=== PATIENT | male | born 1955 | race Hispanic/Latino ===

== ENCOUNTER → 2018-08-14 | Outpatient (CLI) | payer BC ==
[~2018-08-14] MED LIST: IOPAMIDOL 370 MG/ML 200 ML INFUS..BTL INJ ONE; SODIUM CHLORIDE 0.9% 250ML 250 ML ONE; SODIUM CHLORIDE 0.9% 500ML 500 ML ONE
[2018-08-14 10:14] LABS: CREATININE, SERUM 1.28 mg/dL (0.72-1.25)
--- NOTE | 2018-08-14 12:58 | Diagnostic Imaging Report ---
EXAMINATION: CT of the abdomen and pelvis with and without contrast. TECHNIQUE: Spiral CT images of the abdomen and pelvis were performed from the lung bases to the lesser trochanters after the intravenous administration of 100 cc Isovue-370. Scanning was performed in precontrast and urographic phases in the prone position per CT urogram protocol. Coronal and sagittal reformatted images were obtained. Optimization of anatomic definition, volume rendered 3-D reconstructed images were obtained on a stand-alone workstation under direct supervision of the interpreting physician. COMPARISON: None. CLINICAL HISTORY:Gross hematuria DISCUSSION: ABDOMEN/PELVIS: LOWER THORAX:Unremarkable. HEPATOBILIARY: 1.8 cm simple cyst in segment 2, average internal attenuation 15-20 Hounsfield units on postcontrast CT. Similar hypoattenuating lesion measuring 3.3 cm in segment 6, also with average internal attenuation less than 20 Hounsfield units on postcontrast imaging. Additional subcentimeter hypoattenuating lesions scattered throughout the right and left hepatic lobes, too small to further characterize but likely represent additional small cysts. Gallbladder has been removed. SPLEEN: No splenomegaly. PANCREAS: No focal masses or ductal dilatation. ADRENALS: No adrenal nodules. KIDNEYS/URETERS: No renal, ureteral, or bladder calculi. 1.1 cm hyperdense lesion in the right kidney (average attenuation 88 Hounsfield units on precontrast images, and 80 Hounsfield units on urographic phase images), compatible with a hemorrhagic or proteinaceous cyst. Ovoid low-attenuation lesion within the anterior upper pole of the left kidney, average internal attenuation 20 Hounsfield units on precontrast images and 40-45 Hounsfield units on urographic images. 1 cm exophytic lesion projecting from the left kidney with average attenuation 21 Hounsfield units on precontrast image and 85 Hounsfield units on postcontrast imaging. Additional simple cyst projecting medially from the upper pole of the left kidney average internal attenuation 15 Hounsfield units on urographic phase images. Similar parenchymal lesion of the medial left kidney also with average internal attenuation less than 20 Hounsfield units on urographic images seen on series 7 image 86. Additional subcentimeter hypoattenuating lesions within both kidneys, too small to further characterize. Urographic phase images show no filling defects within the upper collecting systems, ureters, or urinary bladder. PELVIC ORGANS/BLADDER: Urinary bladder is unremarkable. The prostate is markedly enlarged and heterogeneous, measuring nearly 7 cm transversely with mass effect upon the bladder base. PERITONEUM/RETROPERITONEUM: No ascites or pneumoperitoneum. LYMPH NODES: No pelvic sidewall, retroperitoneal, or mesenteric lymphadenopathy. VESSELS: Atherosclerotic calcification of the abdominal aorta without aneurysmal dilatation. The right hepatic artery is replaced to the superior mesenteric artery. Portal vein, splenic vein, and central superior mesenteric vein are patent. GI TRACT: The large bowel shows no distention or wall thickening. Multiple descending and sigmoid colon diverticula without adjacent inflammatory change. The appendix is unremarkable. The stomach is collapsed with prominence of the rugal folds. No small bowel dilatation to suggest obstruction. BONES AND SOFT TISSUE: No osseous destructive lesions. Multilevel degenerative disc changes and facet arthropathy of the lumbar spine. Postsurgical changes related to mesh repair of ventral abdominal wall hernia. Otherwise no focal soft tissue abnormalities. IMPRESSION: No urolithiasis or filling defects within the upper collecting systems or ureters. Marked prostatomegaly with heterogeneous attenuation of the gland and mass effect upon the bladder base. Right renal hyperdense cyst with additional bilateral simple cysts. 1 cm exophytic lesion in the left kidney has enhancement characteristics suspicious for solid mass and should be further evaluated by MRI of the abdomen with and without contrast (renal mass protocol). Large bowel diverticulosis without findings of diverticulitis. Atherosclerotic vascular disease. Signed by: Dr. Alex Xiong M.D. on 08/14/2018 12:54 PM
== END ==
LOC: CT 09:21
PROVIDERS: ATTEND Urology
DX: R31.0 Gross hematuria (principal)
CPT/HCPCS: 36415; 74178; 82565; 84520; J7040; J7050; Q9967

== ENCOUNTER → 2018-09-11 | Outpatient (CLI) | payer BC ==
[~2018-09-11] MED LIST changes: +GADOBENATE DIMEGLUMINE 1 ML IV ONE; -IOPAMIDOL 370 MG/ML 200 ML INFUS..BTL INJ ONE; -SODIUM CHLORIDE 0.9% 250ML 250 ML ONE; -SODIUM CHLORIDE 0.9% 500ML 500 ML ONE
--- NOTE | 2018-09-14 08:13 | Diagnostic Imaging Report ---
MRI abdomen CPT code: 60505 Indication: 10 mm enhancing left renal mass on CT urogram ^NEOPLASM OF KIDNEY Technique: Axial T1 nonfat sat in and out of phase, axial T2 fat sat, coronal T2 nonfat sat, axial DWI and ADC MR images of the abdomen were obtained before and after the administration of 15 cc of gadolinium. Axial T1 fat sat GRE dynamic images in precontrast, arterial, venous and delayed phases were obtained. Comparison: CT urogram 08/14/2018 Findings: Virtually all pulse sequences are motion degraded, including the post gadolinium sequences. Liver: Multiple cysts, with the largest cyst measuring 3.9 cm in segment 6. A cyst in segment 2 measures 2 cm and is lobulated and potentially septated. No enhancing lesions given the presence of motion degradation. Gallbladder: Absent Biliary tree: No intrahepatic or extrahepatic biliary ductal dilatation. No intraluminal filling defects. Pancreas: No mass or ductal dilatation Spleen: Normal size and signal. No mass Adrenal glands: No mass Kidneys: Right kidney: Multiple high T2 and low T1 signal cysts. There is one lesion in the posterior interpolar cortex with low T2 and high T1 signal. This measures 0.9 x 1.5 cm. There is no conclusive evidence of enhancement. This corresponds to a proteinaceous/hemorrhagic cyst identified on CT urogram. No hydronephrosis. Left kidney: Multiple high T2, low T1 signal cysts, the largest cysts in the medial upper pole measuring 1.9 cm.. The lesion in question on CT urogram corresponds to a partially exophytic high T2 signal lesion in the lateral interpolar cortex that measures approximately 7 mm. On post gadolinium sequences, there is suggestion of enhancement but there is also the presence of motion degradation. Subtraction images are inconclusive for enhancement but these are also motion degraded. No hydronephrosis. Lymph nodes: No enlarged abdominal or periaortic lymph nodes Bowel: Diverticulosis coli. No associated inflammation. Stomach and visualized portions of the small bowel and large bowel are normal in diameter with normal wall thickness. The appendix is normal. Vasculature: The aorta is mildly tortuous. No aneurysmal dilatation. Normal flow voids in the great vessels of the abdomen. Visualized pelvic organs are unremarkable. Lung bases: Clear. Peritoneum/retroperitoneum: No free fluid or fluid collection. Bones: Normal marrow signal. No focal osseous lesions. IMPRESSION: 1. 7 mm partially exophytic lesion in the left kidney remains indeterminate. Consider repeat MRI with better breath hold (possibly using moderate sedation) or repeat CT urogram in 3-6 months to confirm stability. 2. A low T2 signal nonenhancing lesion in the right kidney has signal characteristics suggestive of a proteinaceous/hemorrhagic cyst. 3. Hepatic cysts. 4. Diverticulosis coli. Signed by: Dr. Hina Hogan MD on 09/14/2018 8:09 AM
== END ==
LOC: MRI 12:50
PROVIDERS: ATTEND Urology
DX: D41.00 Neoplasm of uncertain behavior of unspecified kidney (principal)
CPT/HCPCS: 74183; A9577

== ENCOUNTER 2018-11-30 13:00 | Observation (INO) | payer BC ==
[~2018-11-30] VITALS: Ht 170.2 cm; Wt 88.9 kg
--- OUTSIDE RECORDS SUMMARY | 2018-11-30 13:02 | XMS REPORT ---
[facility] Address Unknown Phone Unavailable Care Team Providers Care Refractory Mixer Name Role Phone MIKE ORTEGA Unavailable Unavailable Problems This patient has no known problems. Allergies, Adverse Reactions, Alerts This patient has no known allergies or adverse reactions. Medications This patient has no known medications. Results Test Description Test Time Test Comments Text Results Atomic Results Result Comments MRI ABDOMEN WOW 2018-09-14 07:54:00 [place] [address] Patient Name: MARY COOLEY MR #: [id number] : 1955 Age/Sex: 63/M Req #: [id number] Adm Physician: Ordered by: MIKE ORTEGA MD Report #: [id number] Location: MRI Room/Bed: Procedure: [id number] MRI/MRI ABDOMEN WOW Exam Date: Exam Time: REPORT STATUS: Signed MRI abdomen CPT code: 17655 Indication: 10 mm enhancing left renal mass on CT urogram NEOPLASM OF KIDNEY Technique: Axial T1 nonfat sat in and out of phase, axial T2 fat sat, coronal T2 nonfat sat, axial DWI and ADC MR images of the abdomen were obtained before and after the administration of 15 cc of gadolinium. Axial T1 fat sat GRE dynamic images in precontrast, arterial, venous and delayed phases were obtained. Comparison: CT urogram 08/14/2018 Findings: Virtually all pulse sequences are motion degraded, including the post gadolinium sequences. Liver: Multiple cysts, with the largest cyst measuring 3.9 cm in segment 6. A cyst in segment 2 measures 2 cm and is lobulated and potentially septated. No enhancing lesions given the presence of motion degradation. Gallbladder: Absent Biliary tree: No intrahepatic or extrahepatic biliary ductal dilatation. No intraluminal filling defects. Pancreas: No mass or ductal dilatation Spleen: Normal size and signal. No mass Adrenal glands: No mass Kidneys: Right kidney: Multiple high T2 and low T1 signal cysts. There is one lesion in the posterior interpolar cortex with low T2 and high T1 signal. This measures 0.9 x 1.5 cm. There is no conclusive evidence of enhancement. This corresponds to a proteinaceous/hemorrhagic cyst identified on CT urogram. No hydronephrosis. Left kidney: Multiple high T2, low T1 signal cysts, the largest cysts in the medial upper pole measuring 1.9 cm.. The lesion in question on CT urogram corresponds to a partially exophytic high T2 signal lesion in the lateral interpolar cortex that measures approximately 7 mm. On post gadolinium sequences, there is suggestion of enhancement but there is also the presence of motion degradation. Subtraction images are inconclusive for enhancement but these are also motion degraded. No hydronephrosis. Lymph nodes: No enlarged abdominal or periaortic lymph nodes Bowel: Diverticulosis coli. No associated inflammation. Stomach and visualized portions of the small bowel and large bowel are normal in diameter with normal wall thickness. The appendix is normal. Vasculature: The aorta is mildly tortuous. No aneurysmal dilatation. Normal flow voids in the great vessels of the abdomen. Visualized pelvic organs are unremarkable. Lung bases: Clear. Peritoneum/retroperitoneum: No free fluid or fluid collection. Bones: Normal marrow signal. No focal osseous lesions. IMPRESSION: 1. 7 mm partially exophytic lesion in the left kidney remains indeterminate. Consider repeat MRI with better breath hold (possibly using moderate sedation) or repeat CT urogram in 3-6 months to confirm stability. 2. A low T2 signal nonenhancing lesion in the right kidney has signal characteristics suggestive of a proteinaceous/hemorrhagic cyst. 3. Hepatic cysts. 4. Diverticulosis coli. Signed by: Dr. Zenaida Hogan MD on 09/14/2018 8:09 AM Dictated By: ZENAIDA HOGAN MD Electronically Nydia d By: ZENAIDA HOGAN MD on 09/14/18 0809 Transcribed By: TWYLA on 09/14/18 0809 COPY TO: MIKE ORTEGA MD CT ABDOMEN/PELVIS WOW 2018-08-14 12:38:00 [place] [address] Patient Name: MARY COOLEY MR #: [id number] : 1955 Age/Sex: 63/M Req #: [id number] Adm Physician: Ordered by: MIKE ORTEGA MD Report #: [id number] Location: CT Room/Bed: Procedure: [id number] CT/CT ABDOMEN/PELVIS WOW Exam Date: 08/14/18 Exam Time: 1130 REPORT STATUS: Signed EXAMINATION: CT of the abdomen and pelvis with and without contrast. TECHNIQUE: Spiral CT images of the abdomen and pelvis were performed from the lung bases to the lesser trochanters after the intravenous administration of 100 cc Isovue-370. Scanning was performed in precontrast and urographic phases in the prone position per CT urogram protocol. Coronal and sagittal reformatted images were obtained. Optimization of anatomic definition, volume rendered 3-D reconstructed images were obtained on a stand-alone workstation under direct supervision of the interpreting physician. COMPARISON: None. CLINICAL HISTORY:Gross hematuria DISCUSSION: ABDOMEN/PELVIS: LOWER THORAX:Unremarkable. HEPATOBILIARY: 1.8 cm simple cyst in segment 2, average internal attenuation 15-20 Hounsfield units on postcontrast CT. Similar hypoattenuating lesion measuring 3.3 cm in segment 6, also with average internal attenuation less than 20 Hounsfield units on postcontrast imaging. Additional subcentimeter hypoattenuating lesions scattered throughout the right and left hepatic lobes, too small to further characterize but likely represent additional small cysts. Gallbladder has been removed. SPLEEN: No splenomegaly. PANCREAS: No focal masses or ductal dilatation. ADRENALS: No adrenal nodules. KIDNEYS/URETERS: No renal, ureteral, or bladder calculi. 1.1 cm hyperdense lesion in the right kidney (average attenuation 88 Hounsfield units on precontrast images, and 80 Hounsfield units on urographic phase images), compatible with a hemorrhagic or proteinaceous cyst. Ovoid low-attenuation lesion within the anterior upper pole of the left kidney, average internal attenuation 20 Hounsfield units on precontrast images and 40-45 Hounsfield units on urographic images. 1 cm exophytic lesion projecting from the left kidney with average attenuation 21 Hounsfield units on precontrast image and 85 Hounsfield units on postcontrast imaging. Additional simple cyst projecting medially from the upper pole of the left kidney average internal attenuation 15 Hounsfield units on urographic phase images. Similar parenchymal lesion of the medial left kidney also with average internal attenuation less than 20 Hounsfield units on urographic images seen on series 7 image 86. Additional subcentimeter hypoattenuating lesions within both kidneys, too small to further characterize. Urographic phase images show no filling defects within the upper collecting systems, ureters, or urinary bladder. PELVIC ORGANS/BLADDER: Urinary bladder is unremarkable. The prostate is markedly enlarged and heterogeneous, measuring nearly 7 cm transversely with mass effect upon the bladder base. PERITONEUM/RETROPERITONEUM: No ascites or pneumoperitoneum. LYMPH NODES: No pelvic sidewall, retroperitoneal, or mesenteric lymphadenopathy. VESSELS: Atherosclerotic calcification of the abdominal aorta without aneurysmal dilatation. The right hepatic artery is replaced to the superior mesenteric artery. Portal vein, splenic vein, and central superior mesenteric vein are patent. GI TRACT: The large bowel shows no distention or wall thickening. Multiple descending and sigmoid colon diverticula without adjacent inflammatory change. The appendix is unremarkable. The stomach is collapsed with prominence of the rugal folds. No small bowel dilatation to suggest obstruction. BONES AND SOFT TISSUE: No osseous destructive lesions. Multilevel degenerative disc changes and facet arthropathy of the lumbar spine. Postsurgical changes related to mesh repair of ventral abdominal wall hernia. Otherwise no focal soft tissue abnormalities. IMPRESSION: No urolithiasis or filling defects within the upper collecting systems or ureters. Marked prostatomegaly with heterogeneous attenuation of the gland and mass effect upon the bladder base. Right renal hyperdense cyst with additional bilateral simple cysts. 1 cm exophytic lesion in the left kidney has enhancement characteristics suspicious for solid mass and should be further evaluated by MRI of the abdomen with and without contrast (renal mass protocol). Large bowel diverticulosis without findings of diverticulitis. Atherosclerotic vascular disease. Signed by: Dr. Marissa Aguilar M.D. on 08/14/2018 12:54 PM Dictated By: MARISSA AGUILAR MD [id number] Transcribed By: TWYLA on 08/14/18 1254 COPY TO: MIKE ORTEGA MD
[2018-11-30] MEDS ORDERED: ASPIRIN 81 MG CHEW TAB PO ONE (14:00)
[2018-11-30 14:49] LABS: BASOPHILS % 0.5 % (0.0-1.0); EOSINOPHILS % 0.4 % (0.0-6.0); HEMOGLOBIN 13.7 g/dL (14.0-18.0); LYMPHOCYTES # (AUTO) 2.1 (1.0-3.2); LYMPHOCYTES % 25.9 % (18.0-39.1); MEAN CORPUSCULAR HGB CONC 34.3 g/dL (31-35); MEAN CORPUSCULAR VOLUME 81.8 fL (81-99); MONOCYTES # (AUTO) 0.5 (0.2-0.8); MONOCYTES % 5.8 % (4.4-11.3); NEUTROPHILS # (AUTO) 5.6 (2.1-6.9); PLATELET COUNT 228 x10e3/uL (140-360); RED BLOOD COUNT 4.89 x10e6/uL (4.3-5.7); RED CELL DISTRIBUTION WIDTH 13.8 % (11.7-14.4)
[2018-11-30 14:50] LABS: BILIRUBIN,URINE NEGATIVE (NEGATIVE); CLARITY,URINE CLEAR (CLEAR); COLOR,URINE YELLOW (YELLOW); KETONES,URINE NEGATIVE (NEGATIVE); LEUKOCYTE ESTERASE ,URINE NEGATIVE (NEGATIVE); NITRITE,URINE NEGATIVE (NEGATIVE); PROTEIN,URINE DIPSTICK NEGATIVE (NEGATIVE); URINE UROBILINOGEN 0.2 mg/dL (0.2 - 1)
[2018-11-30 15:02] LABS: AMORPHOUS SEDIMENT,URINE FEW (FEW)
[2018-11-30 15:02] LABS: INR 0.9; PROTHROMBIN TIME 12.6 seconds (11.9-14.5)
[2018-11-30 15:03] LABS: PARTIAL THROMBOPLASTIN TIME 26.9 seconds (23.8-35.5)
[2018-11-30 15:10] LABS: ALBUMIN/GLOBULIN RATIO 1.3 (0.8-2.0); ANION GAP 16.1 mmol/L (8-16); CALCIUM 9.7 mg/dL (8.4-10.2); CREATININE, SERUM 1.22 mg/dL (0.72-1.25); MAGNESIUM 2.1 MG/DL (1.3-2.1); POTASSIUM 3.1 mmol/L (3.5-5.1)
[2018-11-30 15:16] LABS: CREATINE KINASE MB 1.8 ng/mL (0-5.0)
--- NOTE | 2018-11-30 15:34 | Diagnostic Imaging Report ---
EXAMINATION: CHEST SINGLE (PORTABLE) INDICATION: Chest pain COMPARISON: None FINDINGS: LINES/TUBES:None LUNGS:The lungs are well-inflated. There is left basilar opacity silhouetting the left roberta diaphragm. PLEURA:No pleural effusion or pneumothorax. MEDIASTINUM:Mild cardiomegaly. Atherosclerotic calcifications of the thoracic aorta. BONES/SOFT TISSUES:No acute osseous injury. ABDOMEN:No free air under the diaphragm. IMPRESSION: Patchy left basilar opacity may represent subsegmental atelectasis however superimposed aspiration or pneumonia can have a similar appearance in the proper clinical setting. Signed by: Isela García MD on 11/30/2018 3:31 PM
[2018-11-30] MEDS ORDERED: NITROGLYCERIN 0.4 MG SUBL SL PRN (16:00)
[2018-11-30] MEDS ORDERED: ONDANSETRON HCL INJ 2MG/ML 2ML 2 MG/ML VIAL IV PRN (16:00)
[2018-11-30] MEDS ORDERED: MORPHINE SULFATE 2 MG/ML SYR 1ML IV PRN (16:00)
[2018-11-30] MEDS ORDERED: POTASSIUM CHLORIDE 20 MEQ TAB CR PO ONE (16:15)
[2018-11-30] MEDS ORDERED: QUETIAPINE FUMA50 MG (17:08)
[2018-11-30] MEDS ORDERED: TRIAMTERENE-HC1 EAC1 PO (17:08)
[2018-11-30] MEDS ORDERED: ZOLPIDEM TARTRA10 MG (17:08)
[2018-11-30] MEDS ORDERED: FLOMAX0.4 MG (17:08)
[2018-11-30] MEDS ORDERED: OMEPRAZOLE20 MG (17:08)
[2018-11-30] MEDS ORDERED: ALLOPURINOL300 MG (17:08)
[2018-11-30] MEDS ORDERED: IRBESARTAN150 MG (17:08)
[2018-11-30] MEDS: FAMOTIDINE 20 MG/2 ML VIAL IV SCH (17:08)
[2018-11-30] MEDS ORDERED: FINASTERIDE5 MG (17:08)
--- NOTE | 2018-11-30 17:28 | NUR ---
room assigned; report attempted.
--- NOTE | 2018-11-30 18:06 | NUR ---
room assigned; report attempted.
--- NOTE | 2018-11-30 18:15 | NUR ---
room assigned; report attempted.
--- NOTE | 2018-11-30 18:34 | NUR ---
room assigned; report attempted.
[2018-11-30 20:29] VITALS: BP 161/96
[2018-12-01] VITALS (8 sets, daily range): BP systolic 133–168; BP diastolic 82–91
--- NOTE | 2018-12-01 | NUR ---
PATIENT REFUSED LABS TO BE DRAWN UPSET THAT RT DIDN'T DELIVER CPAP ORDERED ON TIME AND FAMILY BROUGHT HIS FROM HOME, FAMILY CURSED NURSE WHEN LEAVING THE BUILDING STATING "GREAT JOB GETTING THE FUCKING BREATHING MACHINE". EDUCATED PATIENT ON WHAT TEST WAS FOR STILL DECLINED, EDUCATED REATTEMPT WOULD BE MADE WITH OTHER LABS IN THE MORNING.
--- NOTE | 2018-12-01 02:02 | Consultation ---
DATE OF CONSULTATION: 11/30/2018 Cardiology Consult Note REASON FOR CONSULT: Chest pain. CHIEF COMPLAINT: Chest pain. HISTORY OF PRESENT ILLNESS: The patient is a 63-year-old man with history of hypertension, obesity, hyperlipidemia, who presents with pressure sensation in the left side of his chest for the past several weeks, now getting worse, presented today because he had particularly bad episode. He said it comes and goes. No real association with exertion. However, he does tend to notice it more when he is at work. No previous CV history. No history of diabetes, smoking, or family history of CAD. REVIEW OF SYSTEMS: As above, otherwise negative. FAMILY HISTORY: No family history of early CAD or sudden cardiac . SOCIAL HISTORY: The patient does not smoke, drink, or abuse drugs. OUTPATIENT MEDICATIONS: Reviewed. Please see MAR. ALLERGIES: NO KNOWN DRUG ALLERGIES. OBJECTIVE: VITAL SIGNS: Temperature afebrile, pulse 61, respiratory rate 16, blood pressure 157/92, saturating 97% on room air. GENERAL: Obese man, in no acute distress. CARDIOVASCULAR: Regular rate and rhythm. No murmurs, rubs, or gallops. LUNGS: Clear to auscultation bilaterally. ABDOMEN: Soft, nontender, nondistended. NEUROLOGIC AND PSYCHIATRIC: Alert and oriented to person, place, and time. Normal affect. INPATIENT MEDICATIONS: Reviewed. LABORATORY DATA: Reviewed. TELEMETRY DATA: Reviewed, normal sinus rhythm. EKG, normal sinus rhythm. No acute ischemic changes. ASSESSMENT: Chest pain with typical and atypical features. PLAN: Rule out for acute [place] with serial cardiac enzymes. If the enzymes are negative, plan for nuclear stress test tomorrow. Thank you for this consult. We will continue to follow. MD JAH LoomisP/MODL /[id number]
[2018-12-01] MEDS: FAMOTIDINE 20 MG/2 ML VIAL IV SCH (04:01)
[2018-12-01] MEDS ORDERED: HYDRALAZINE HCL 20 MG/ML VIAL IV PRN (05:00)
[2018-12-01] MEDS ORDERED: METOCLOPRAMIDE10 MG PO (05:14)
[2018-12-01] MEDS ORDERED: LIPITOR20 MG PO (05:14)
[2018-12-01] MEDS ORDERED: ASPIRIN EC81 MG PO (05:14)
[2018-12-01 05:46] LABS: BASOPHILS % 0.4 % (0.0-1.0); EOSINOPHILS # (AUTO) 0.1 (0.0-0.4); EOSINOPHILS % 1.1 % (0.0-6.0); HEMATOCRIT 37.7 % (38.2-49.6); HEMOGLOBIN 12.9 g/dL (14.0-18.0); LYMPHOCYTES # (AUTO) 2.9 (1.0-3.2); LYMPHOCYTES % 39.2 % (18.0-39.1); MEAN CORPUSCULAR HEMOGLOBIN 28.4 pg (28-32); MEAN CORPUSCULAR HGB CONC 34.2 g/dL (31-35); MEAN CORPUSCULAR VOLUME 82.9 fL (81-99); MONOCYTES # (AUTO) 0.6 (0.2-0.8); MONOCYTES % 7.5 % (4.4-11.3); NEUTROPHILS # (AUTO) 3.8 (2.1-6.9); NEUTROPHILS % 51.4 % (38.7-80.0); PLATELET COUNT 232 x10e3/uL (140-360); RED BLOOD COUNT 4.55 x10e6/uL (4.3-5.7)
[2018-12-01 06:06] LABS: CREATINE KINASE 153 IU/L (30-200)
[2018-12-01 06:16] LABS: B-TYPE NATRIURETIC PEPTIDE2 10.9 pg/mL (0-100)
[2018-12-01 06:57] LABS: MAGNESIUM 2.2 MG/DL (1.3-2.1)
[2018-12-01 07:03] LABS: ALANINE AMINOTRANSFERASE 24 IU/L (0-55); ALBUMIN 3.5 g/dL (3.5-5.0); ALBUMIN/GLOBULIN RATIO 1.1 (0.8-2.0); ALKALINE PHOSPHATASE 56 IU/L (40-150); ANION GAP 15.4 mmol/L (8-16); BLOOD UREA NITROGEN 23 mg/dL (7-26); BUN/CREATININE RATIO 20 (6-25); CARBON DIOXIDE 24 mmol/L (22-29); CHLORIDE 104 mmol/L (98-107); CHOL/HDL RATIO 3.8 (3.9-4.7); CHOLESTEROL 151 MD/DL (0-199); CREATININE, SERUM 1.14 mg/dL (0.72-1.25); EST GLOMERULAR FILTRATION RATE > 60 ML/MIN (60-); GLUCOSE 100 mg/dL (74-118); HDL CHOLESTEROL 40 MG/DL (40-60); LDL CHOLESTEROL 75 MG/DL (60-130); POTASSIUM 3.4 mmol/L (3.5-5.1); SODIUM 140 mmol/L (136-145); TRIGLYCERIDES 180 MG/DL (0-149)
[2018-12-01 07:25] LABS: FREE T4 (FREE THYROXINE) 1.15 ng/dL (0.8-1.8); THYROID STIMULATING HORMONE 1.833 uIU/mL (0.350-4.940)
[2018-12-01] MEDS ORDERED: TAMSULOSIN HCL 0.4 MG CAP PO SCH (09:00)
[2018-12-01] MEDS ORDERED: ASPIRIN 81 MG ENTERIC COATED PO SCH (09:00)
[2018-12-01] MEDS ORDERED: PANTOPRAZOLE SOD 40 MG TABEC PO SCH (09:00)
[2018-12-01] MEDS ORDERED: ALLOPURINOL 300 MG TAB PO SCH (09:00)
[2018-12-01] MEDS ORDERED: FINASTERIDE 5 MG TAB PO SCH (09:00)
[2018-12-01] MEDS ORDERED: IRBESARTAN 150 MG TAB PO SCH (09:00)
--- NOTE | 2018-12-01 12:26 | NUR ---
ATTEMPTED TO PREFORM DISCHARGE ASSESSMENT BUT PT NOT IN ROOM
[2018-12-01] MEDS ORDERED: QUETIAPINE FUMARATE 100 MG TAB PO SCH (21:00)
[2018-12-01] MEDS ORDERED: ATORVASTATIN 10 MG TAB PO SCH (21:00)
[2018-12-01] MEDS ORDERED: ZOLPIDEM TARTRATE 10 MG TAB PO SCH (21:00)
--- NOTE | 2018-12-03 08:18 | Discharge Summary ---
ADMISSION DIAGNOSES: Chest pain, hypertension, hyperlipidemia, hypokalemia, obstructive sleep apnea, benign prostatic hypertrophy, gout, gastroesophageal reflux disease, obesity, and insomnia. DISCHARGE DIAGNOSES: Chest pain, hypertension, hyperlipidemia, hypokalemia, obstructive sleep apnea, benign prostatic hypertrophy, gout, gastroesophageal reflux disease, obesity, and insomnia, ruled out, hypermagnesemia. HISTORY: The patient has a history of hypertension, BPH, gout, insomnia, obstructive sleep apnea, GERD, hyperlipidemia. SURGICAL HISTORY: Cholecystectomy, umbilical hernia, and bilateral cataract surgery. FAMILY HISTORY: The patient's sister had diabetes. The patient's mother had cancer. SOCIAL HISTORY: The patient admits to occasional alcohol use. HOSPITAL COURSE: A 63-year-old male complains of intermittent substernal chest pain that began Friday while getting out of the shower. The pain did not radiate. He denies associated shortness of breath, diaphoresis, and dizziness. Pain improves with pain medications and worsens at night. On admission, the patient's troponins were negative x2. He was started on aspirin. Cardiology was consulted and the patient underwent a stress test. The lipid panel was within normal limits except triglycerides which was 180. A1c was 5.8. Chest x-ray showed patchy left basilar opacity, which may represent atelectasis; however, superimposed aspiration or pneumonia could have similar appearance. A stress test was done and negative per Cardiology. The patient can discharge home and follow up with primary care in 1 to 2 weeks. The patient will discharge with Reglan, Lipitor, and aspirin as well as his normal home medicines. The patient understands discharge instructions and agrees to plan. Vital signs stable, the patient afebrile. Dictated by Marlen Reagan NP MD DOUGLAS Lynch/MODLacey /[id number]
--- NOTE | 2018-12-09 16:22 | Myoview Stress Test ---
DATE OF STUDY: 11/30/2018 18:09:00 Stress Test - Treadmill ONLY PROCEDURE TITLE: Rest/stress single isotope SPECT imaging with exercise stress and gated SPECT imaging. INDICATION: Chest pain. PROCEDURE IN DETAIL: The patient performed treadmill exercise using a Casey protocol, exercising for 10 minutes 17 seconds to stage IV and completing estimated workload of 12.8 metabolic equivalents (METs). The test was terminated due to target heart rate achieved. The resting heart rate was 64 beats per minute and increased to 149 beats per minute at peak exercise, which was 96% of the maximum predicted heart rate. The rest blood pressure was 149/87 mmHg and increased to 193/91 mmHg, which is a normal response. The resting electrocardiogram demonstrated normal sinus rhythm. There were no ST-segment changes suggestive of myocardial ischemia. PVCs were noted in recovery. Myocardial perfusion imaging was performed at rest following the injection of 11 mCi of tetrofosmin. At peak exercise, the patient was injected with 30 mCi of tetrofosmin. Gated post-stress tomographic imaging was performed. FINDINGS: The overall quality of study is good. Left ventricular cavity is to be normal size on the rest and stress studies. SPECT images demonstrate homogeneous tracer distribution throughout the myocardium. Gated SPECT imaging reveals normal myocardial thickening and wall motion. The left ventricular ejection fraction was calculated to be 62%. IMPRESSION: Myocardial perfusion imaging is normal. Overall, left ventricular systolic function was normal without regional wall motion abnormalities. Susi Moore MD ABS/MODL /[id number]
== END 2018-12-01 19:10 | disposition home or self-care (01) ==
LOC: ER 13:00 → ERHOLD 16:13 → IMCU 19:30
PROVIDERS: ADMIT Internal Medicine; ATTEND Internal Medicine
DX: R07.89 Other chest pain (principal); I10 Essential (primary) hypertension; E78.5 Hyperlipidemia, unspecified; E87.6 Hypokalemia; G47.33 Obstructive sleep apnea (adult) (pediatric); N40.0 Benign prostatic hyperplasia without lower urinary tract symptoms; K21.9 Gastro-esophageal reflux disease without esophagitis; E83.41 Hypermagnesemia; M10.9 Gout, unspecified; Z90.49 Acquired absence of other specified parts of digestive tract; E66.9 Obesity, unspecified; Z68.30 Body mass index [BMI] 30.0-30.9, adult
CPT/HCPCS: 36415 ×2; 71045; 78452; 80053 ×2; 80061; 81001; 82550 ×2; 82553 ×2; 83036; 83735 ×2; 83880 ×2; 84439; 84443; 84484 ×2; 85025 ×2; 85610; 85730; 93005; 93017; 99284; A9502; G0378 ×2